=== PATIENT | male | born 1990 | race Caucasian/White ===

== ENCOUNTER → 2021-08-27 | Outpatient (CLI) | payer BC ==
--- NOTE | 2021-08-27 14:40 | RAD ---
EXAM: Bilateral knees, standing view; right knee, 2 views. HISTORY: Pain. COMPARISON: None. FINDINGS: A frontal view of both knees and 2 views the right knee are obtained. There is no fracture, dislocation or subluxation. There is no right knee effusion. There is prepatellar soft tissue swelli ng involving the right knee. There is no foreign body. IMPRESSION: 1. Right knee prepatellar soft tissue swelling. This can be seen with prepatellar bursitis. If there is a history of recent trauma, the differential also includes prepatellar soft tissue hematoma. Corre late with physical exam findings. 2. No acute osseous finding. Electronically signed by: Shanika Hernandez MD (08/27/2021 2:37 PM) [id number]
== END ==
LOC: RAD 14:14
PROVIDERS: ATTEND Physician Assistant
DX: M25.461 Effusion, right knee (principal); M79.89 Other specified soft tissue disorders
CPT/HCPCS: 73560; 73565